=== PATIENT | female | born 1980 | race Caucasian/White ===

== ENCOUNTER 2023-04-28 17:13 | Emergency (ER) | payer BC, OTHER, SELFPAY ==
[2023-04-28 17:20] VITALS: BP 112/68; PULSE 92; RESP 20; TEMP 37.2; O2SAT 98
--- NOTE | 2023-04-28 18:16 | ED.URI ---
HPI - URI/Sore Throat General Chief Complaint: Upper Respiratory Infection Stated Complaint: head/chest congestion/ears Time Seen by Provider: 04/28/23 18:00 Source: patient and RN notes reviewed Mode of arrival: ambulatory Limitations: no limitations History of Present Illness HPI Narrative: Patient presents today with a 5 day history of productive cough with sputum that is now brown, bilateral ear clogging, body aches, nasal congestion. She has been taking ibuprofen and NyQuil as well as Mucinex with mild relief. History of COPD. That she does not currently have any treatment for COPD. Related Data Home Medications Medication Instructions Recorded Confirmed buprenorphine 4 mg-naloxone 1 mg film 04/28/23 sublingual film Allergies Allergy/AdvReac Type Severity Reaction Status Date / Time codeine AdvReac Intermediate Nausea and Verified 05/25/18 15:01 Vomiting Review of Systems Review of Systems: CONSTITUTIONAL: Denies fever, chills, or sweats.+ body aches EYES: Denies visual changes, redness, or discharge. ENT: Denies rhinorrhea, sore throat.+ bilateral ear muffling, nasal congestion CARDIOVASCULAR: Denies chest pain, palpitations, or edema. RESPIRATORY: Denies dyspnea.+ cough GASTROINTESTINAL: Denies abdominal pain, nausea, vomiting, or diarrhea. GENITOURINARY: Denies dysuria or hematuria. SKIN: Denies rash, itching, or wounds. MUSCULOSKELETAL: Denies back pain, joint pain, or myalgia. NEUROLOGIC: Denies headache, numbness, tingling, or weakness. PSYCH: Denies depression or anxiety. FOR[facility]LY [facility] Past Medical History Medical History (Updated 04/28/23 @ 18:23 by Carmela Machuca, [facility], ) COPD (chronic obstructive pulmonary disease) Comments At time of signature, I have reviewed and agree with nursing past medical, surgical, social and family history unless otherwise noted. Please see nursing chart for further information. There is no relevant family history pertinent to the presenting complaint Exam Narrative: GENERAL: Mildly ill-appearing, well-nourished, and in no acute distress. HEAD: Normocephalic, atraumatic. EYES: EOMI. No redness or drainage. Conjunctivae normal. ENT: Mucous membranes pink and moist. Nares congested. No rhinorrhea. TMs normal bilaterally. Throat normal. Uvula midline. NECK: Normal AROM. Supple. No lymphadenopathy. CHEST: No respiratory distress. Slight expiratory wheeze in the right upper lobe, otherwise clear. HEART: Regular rate and rhythm. No murmur appreciated. EXTREMITIES: Normal range of motion. No edema. SKIN: Warm, dry, no rash. Capillary refill normal. Normal skin turgor. NEURO: No focal deficits. Alert and oriented x3. Gait steady. PSYCH: Normal affect. No signs of depression or anxiety. Course Course Level of Care: Express Care Visit Vital Signs Vital signs: Vital Signs Temperature 98.9 F 04/28/23 17:20 Pulse Rate 92 04/28/23 17:20 Respiratory Rate 20 04/28/23 17:20 Blood Pressure 112/68 04/28/23 17:20 Pulse Oximetry 98 04/28/23 17:20 Oxygen Delivery Room Air 04/28/23 17:20 Temperature 98.9 F 04/28/23 17:20 Pulse Rate 92 04/28/23 17:20 Respiratory Rate 20 04/28/23 17:20 Blood Pressure 112/68 04/28/23 17:20 Pulse Oximetry 98 04/28/23 17:20 Oxygen Delivery Room Air 04/28/23 17:20 Reviewed MDM - URI/Sore Throat MDM Narrative Medical decision making narrative: Patient will be treated with Augmentin and prednisone. Anticipatory guidance given. Differential Diagnosis Differential diagnosis: Likely upper respiratory infection, bronchitis and other (Pneumonia, COPD exacerbation) Critical Care Time Critical Care Time Critical Care Time: No Discharge Plan Discharge Clinical Impression: Lower respiratory infection Patient Disposition: Home, Self-Care Condition: Stable Instructions: Antibiotic Form, COPD (Chronic Obstructive Pulmonary Disease) (DC) Additional Instructio
== END 2023-04-28 18:35 | disposition home or self-care (01) ==
PROVIDERS: Emergency Provider Nurse Practitioner; PCP Family Medicine
DX: J22 Unspecified acute lower respiratory infection (principal); J44.9 Chronic obstructive pulmonary disease, unspecified
CPT/HCPCS: 99203; G0463